=== PATIENT | female | born 1990 | race Two or more races ===

== ENCOUNTER → 2022-01-15 | Outpatient (CLI) | payer OTHER ==
[~2022-01-15] VITALS: Ht 162.6 cm; Wt 122.5 kg
[~2022-01-15] MED LIST: COLACE 100MG C100 MG PO; CYCLOBENZAPRINE5 MG PO; HYDROCODON-ACE1 EAC2 PO; IBUPROFEN800 MG PO; PRENATABS FA T1 EACH PO
== END ==
LOC: GENOP 16:44 → OB 16:48
DX: O47.1 False labor at or after 37 completed weeks of gestation (principal); O99.333 Smoking (tobacco) complicating pregnancy, third trimester; F17.210 Nicotine dependence, cigarettes, uncomplicated; Z68.38 Body mass index [BMI] 38.0-38.9, adult
CPT/HCPCS: 84112; G0463

== ENCOUNTER 2022-01-19 05:15 | Inpatient (IN) | payer OTHER ==
[~2022-01-19] VITALS: Ht 157.5 cm; Wt 72.6 kg
[2022-01-19 06:24] LABS: HEMOGLOBIN 12.1 gm/dl (12.3-15.3); RED BLOOD COUNT 3.91 M/UL (4.00-5.10); WHITE BLOOD COUNT 8.2 K/UL (4.5-11.0)
[2022-01-19] MEDS ORDERED: PRENATABS FA T1 EACH PO (06:24)
[2022-01-19] MEDS ORDERED: COLACE 100MG C100 MG PO (10:02)
[2022-01-19] MEDS ORDERED: HYDROCODON-ACE1 EAC2 PO (10:02)
[2022-01-19] MEDS ORDERED: IBUPROFEN800 MG PO (10:02)
[2022-01-20 05:01] LABS: HEMOGLOBIN 10.8 gm/dl (12.3-15.3)
[2022-01-21] MEDS ORDERED: CYCLOBENZAPRINE5 MG PO (13:09)
== END 2022-01-21 14:24 | disposition home or self-care (01) | DRG 787 ==
LOC: OB 05:15
PROVIDERS: ADMIT Obstetrics & Gynecology
PROC: 4A0HXCZ Measurement of Products of Conception, Cardiac Rate, External Approach (ICD-10-PCS; 2022-01-19)
PROC: 10D00Z1 Extraction of Products of Conception, Low, Open Approach (ICD-10-PCS; principal; 2022-01-19 07:30)
DX: O34.211 Maternal care for low transverse scar from previous cesarean delivery (principal); O98.12 Syphilis complicating childbirth; O99.324 Drug use complicating childbirth; Z37.0 Single live birth; F12.10 Cannabis abuse, uncomplicated; A53.9 Syphilis, unspecified; O99.344 Other mental disorders complicating childbirth; O99.284 Endocrine, nutritional and metabolic diseases complicating childbirth; E05.90 Thyrotoxicosis, unspecified without thyrotoxic crisis or storm; O77.0 Labor and delivery complicated by meconium in amniotic fluid; Z3A.39 39 weeks gestation of pregnancy; O99.334 Smoking (tobacco) complicating childbirth; F17.210 Nicotine dependence, cigarettes, uncomplicated; Z82.49 Family history of ischemic heart disease and other diseases of the circulatory system; Z81.8 Family history of other mental and behavioral disorders; Z83.49 Family history of other endocrine, nutritional and metabolic diseases; Z80.9 Family history of malignant neoplasm, unspecified; Z83.3 Family history of diabetes mellitus
CPT/HCPCS: 80307; 81001; 82800; 85014; 85018; 85025; C9113; J0690; J1170; J2210; J2405; J2590